=== PATIENT | male | born 1975 | race Two or more races ===

== ENCOUNTER 2025-08-13 05:45 | Day surgery (SDC) | payer MEDICAID, SELFPAY ==
--- NOTE | 2025-08-07 06:20 | EKG_ITS ---
[facility] Test Date: 2025-08-07 Pat Name: EMILIA RIOS Department: Room: - Gender: Male Supervisor Taping: RAOUL : 1975 Requested By: Bk Bass Order Number: [id number] Reading MD: Bk Bass Measurements Intervals [place] Rate: 68 P: 0 [place]: 154 QRS: 69 QRSD: 118 T: 37 QT: 369 QTc: 394 Interpretive Statements SINUS RHYTHM MODERATE INTRAVENTRICULAR CONDUCTION DELAY [110+ ms QRS DURATION] No previous ECG available for comparison /[id number]/S0/[id number]
[2025-08-07 09:08] VITALS: BMI 34.2
[2025-08-07 11:32] LABS: Collection Type, Urine Clean Catch; Squamous Epithelial Cell,Urine 0 /hpf (0-5)
[2025-08-07 11:46] LABS: Basophils # (Auto) 0.0 Thou/mm3 (0.0-0.2); Basophils % (Auto) 1 % (0-2.5); Eosinophils # (Auto) 0.2 Thou/mm3 (0.0-0.5); Eosinophils % (Auto) 3 % (0-10); Hematocrit 49.2 % (41.0-53.0); Hemoglobin 17.2 g/dL (13.5-16.0); Immature Granulocytes Auto 0.02 Thou/mm3 (0.00-0.00); Lymphocytes # (Auto) 1.5 Thou/mm3 (1.0-4.8); Lymphocytes % (Auto) 30 % (10-50); Mean Corpuscular HGB Conc 35.0 g/dl (31.0-37.0); Mean Corpuscular Hemoglobin 30.2 pg (25.0-35.0); Mean Corpuscular Volume 86 fL (80-100); Monocytes # (Auto) 0.4 Thou/mm3 (0.0-0.8); Monocytes % (Auto) 9 % (0-12); Neutrophils # (Auto) 2.9 Thou/mm3 (1.8-7.7); Neutrophils % (Auto) 57 % (37-80); Nucleated Red Blood Cell # 0.00 Thou/mm3 (0.00-0.00); Nucleated Red Blood Cell % 0 /100 WBC (0); Platelet Count 221 Thou/mm3 (140-440); RDW Standard Deviation 39.3 fL (35.1-43.9); Red Blood Count 5.70 Miln/mm3 (4.50-5.90); White Blood Count 5.0 Thou/mm3 (3.8-10.6)
[2025-08-07 11:48] LABS: Bilirubin,Urine Negative (Negative); Blood,Urine Negative (Negative); Clarity,Urine Clear (Clear/Hazy); Color,Urine Colorless (Lt Yel-Yel); Glucose, Urine Negative (Negative); Ketones,Urine Negative (Negative); Leukocyte Esterase,Urine Negative (Negative); Nitrite,Urine Negative (Negative); PH,Urine 6.5 (5.0-7.0); Protein,Urine Negative (Neg - Trace); RBC,Urine 2 /hpf (0-3); Specific Gravity,Urine 1.009 (1.001-1.035); Urobilinogen,Urine Negative mg/dL (0.0-1.0); WBC,Urine < 1 /hpf (0-5)
[2025-08-07 11:53] LABS: Partial Thromboplastin Time 30.1 Seconds (22.0-36.0)
[2025-08-07 11:57] LABS: Alanine Aminotransferase 46 U/L (10-49); Albumin, Serum 5.2 gm/dL (3.5-5.0); Anion Gap 9 (7-16); Aspartate Amino Transferase 38 U/L (0-34); BUN/Creatinine Ratio 11 Ratio (12-20); Blood Urea Nitrogen 11 mg/dL (9-23); Calcium 10.2 mg/dL (8.3-10.6); Calcium (Corrected) 10.2 mg/dL (8.5-10.1); Carbon Dioxide 28.0 mMol/L (20.0-31.0); Chloride 105 mMol/L (98-107); Creatinine (Component) 1.0 mg/dL (0.6-1.3); Estimated Creatinine Clearance 115.8 mL/min (>60); Glucose 106 mg/dL (74-106); Osmolality,Calculated 282 (275-295); Potassium 3.9 mMol/L (3.4-5.1); Sodium 142 mMol/L (136-145); eGFR > 60 See Note
[2025-08-07 12:34] LABS: Albumin/Globulin Ratio 2.3 (1.2-2.2); Alkaline Phosphatase 50 U/L (46-116); Bilirubin,Total 0.8 mg/dL (0.3-1.2); Globulin 2.3 gm/dL (2.3-3.5); Total Protein 7.5 gm/dL (5.7-8.2)
[2025-08-13] VITALS (10 sets, daily range): BP systolic 112–155; BP diastolic 62–87; PULSE 73–89; RESP 12–18; TEMP 36.4–36.7; O2SAT 96–99; BMI 34.4
[2025-08-13] MEDS: RINGERS LACTATED 1000 ML 1,000 ML 60 ML IV (07:12)
--- NOTE | 2025-08-13 07:24 | SUR.PREOP ---
Patient expressed gratitude for prayer before their procedure.
--- NOTE | 2025-08-13 09:35 | SUR.PHASEI ---
0935 Patient arrived to recovery resting comfortably in [facility], on oxygen 10L via oxy mask with an oral airway in place, breathing unlabored, vital signs stable, dressing intact to abdomen; eddie, adaptic, telfa, gauze, medipore tape, no bleeding noted, report received from Dr. Heaton and Jodee YEH
--- NOTE | 2025-08-13 09:37 | PD.SUROPNT ---
Date of Procedure 08/13/25 Pre Op Diagnosis Incarcerated umbilical hernia and umbilical pilonidal cyst Post Op Diagnosis Same. Procedure Repair of incarcerated umbilical hernia and excision of umbilical pilonidal cyst on 08/13/2025 Findings This patient had previous repair after he was born when the umbilical hernia was repaired. He developed a recurrent hernia as well as a infected cyst within the umbilicus. Upon exploration he was found to have an incarcerated hernia but he was also found to have an infected pilonidal cyst in the umbilicus with the hair. The hernia was repaired and cyst was excised and also required reconstruction of the umbilicus. Procedure Description The patient is interviewed in the preoperative area and the procedure was discussed in detail with the patient including expectation of outcomes. Explanation of the technique and complications. An informed consent was obtained. Anesthesia consent was obtained by the anesthesiologist. The hernia sites were marked on the surface. Patient is brought back to the operating room. The patient is positioned supine on the operating table and general anesthesia is administered in a satisfactory manner. The chest abdomen and thigh genitalia regions are prepped and draped in usual manner. IV antibiotics were given and a timeout procedure was carried out. Local anesthesia Marcaine 0.5% with epinephrine is used as an adjunct. Vertical circumumbilical incision is made around the umbilicus. Dissection is carried out in the subcutaneous tissue to the fascia and the umbilical hernia defect is identified. The umbilicus from the fascia. There is significant amount of chronic scar tissue in this location. Gentle dissection is carried out and hernia sac was isolated. The sac is opened and was removed as specimen. There were significantly dense adhesions of the omentum within the hernia sac and surrounding subcutaneous tissue. The contents are reduced. Hemostasis is achieved. The defect is measured. It is about 5.5 cm in the width. The laps and instrument counts are obtained they are correct x2 and the defect in the fascia is closed with interrupted 0 Vicryl sutures. Hemostasis is achieved. The attention is then diverted to over the pilonidal cyst. It is actively draining and there is hair within the cyst. Culture and sensitivities taken. Operative field is irrigated with Betadine solution. The pilonidal cyst was excised with the margin of normal umbilical skin. It is sent off as a separate specimen. Now the umbilicus requires reconstruction. This is carried out with 3-0 Vicryl subcuticular stitches approximating the skin after the pilonidal cyst was excised. Excess umbilical skin with scar was also excised. Reconstruction was carried out. After that the umbilicus is examined from the inside and another layer of 3-0 Vicryl is used so as to prevent dehiscence. Then the umbilicus is attached back to the fascia with interrupted 3-0 Vicryl suture. This is to avoid floating umbilicus. The operative field is thoroughly irrigated with saline solution again and then subcutaneous tissue is approximated by 3-0 Vicryl interrupted sutures and skin by eddie. Sterile dressing is applied. Patient tolerated the procedure very well complications none. Patient is transferred to recovery room in a satisfactory condition. Anesthesia GETA Drains None. Implants None. Pathology / specimen Other (Umbilical pilonidal cyst and umbilical hernia sac) Estimated Blood Loss 5 Condition Stable Disposition PACU Surgeon Bk Bass MD Surgical Staff Operation Date: 08/13/25 07:30 Case Staff Anesthesiologist: Sean Heaton RN First Assistant: Tracy Ng rn medical surgical Jodee YEH hospital laboratory technician
--- NOTE | 2025-08-13 10:43 | SUR.PHASEII ---
1043 Telephone order read-back received from Bryce Swain oral tab x1 for pain, will place order in EMR and administer per anesthesia order
--- NOTE | 2025-08-13 11:09 | SUR.PHASEII ---
1109 patient meets discharge criteria from recovery, awake and alert, breathing unlabored, vital signs stable, ate a jello; denies nausea, per patient his pain is improving, dressing intact; no bleeding noted, assisted with dressing into his clothing by his , discharge instructions given to patient and patients with the assistance of the telephone per diem interpreter Leon ID#[id number], patient signed discharge instructions. Patient given all his belongings prior to discharge, transported via wheelchair and left in a private vehicle.
== END 2025-08-13 11:09 | disposition home or self-care (01) ==
PROVIDERS: PCP Family Medicine; Referring Provider Specialist; Visit Provider Specialist
PROC: (CPT 11770; principal; 2025-08-13 07:30)
DX: K42.0 Umbilical hernia with obstruction, without gangrene (principal); L05.91 Pilonidal cyst without abscess; Z01.810 Encounter for preprocedural cardiovascular examination
CPT/HCPCS: 11770; 49616; 36415; 80053; 81001; 85025; 85730; 87070; 87075; 87205; 93005; A4649; J0131; J0690; J1100; J1580; J1885; J2250; J2405; J2704; J3010; J3490; J7120; A9270